=== PATIENT | male | born 1970 | race Caucasian/White ===

== ENCOUNTER 2019-06-19 19:15 | Emergency (ER) | payer BC ==
[2019-06-19] MEDS ORDERED: ONDANSETRON HCL IV 4 MG/2 ML VIAL IV ONE (19:33)
[2019-06-19] MEDS ORDERED: 0.9 % SODIUM CHLORIDE 1,000 ML BAG IV ONE ×2 (19:33→20:25)
[2019-06-19] MEDS ORDERED: ACETAMINOPHEN 1,000 MG/100 ML BTL IVPB ONE (19:34)
--- NOTE | 2019-06-19 19:35 | Emergency Department Record ---
History of Present Illness - General Chief complaint: Nausea, Vomiting, Diarrhea Stated complaint: NAKIA/DUNBAR/WEAK/HANDS TINGLING Time Seen by Provider: 06/19/19 19:28 Source: Patient Mode of Arrival: Ambulatory Limitations: No limitations - History of Present Illness Initial comments: The patient is here due to a 4 day hx of worsening watery diarrhea with nausea. He has been unable to keep anything down and has had crampy lower AP. The patient feels very dehydrated and did drive himself here and became weak and dizzy and lightheaded in the waiting room. He has had a gradually worsening DUNBAR over that time also. The patient denies any fever, chills, dysuria, or neck pain. The patient denies any fever, blood in the stool or recent travel to [place] or [place]. MD complaint: Diarrhea, Nausea Onset/Timin -: Days(s) Description of Vomiting: Watery Associated Abdominal Pain: Yes Location: LLQ, RLQ Radiation: None Severity: Severe Severity scale (1-10): 8 Quality: Cramping Consistency: Intermittent Improves with: None Worsens with: None Associated Symptoms: Shortness of breath - Related Data Home Medications Medication Instructions Recorded Confirmed Last Taken Venlafaxine HCl [Effexor] 75 mg PO DAILY 06/19/19 06/19/19 06/17/19 Previous Rx's Medication Instructions Recorded Ondansetron [Zofran Odt] 4 mg SL .Q4-6H PRN #12 tab.rapdis 06/19/19 Allergies Allergy/AdvReac Type Severity Reaction Status Date / Time Penicillins Allergy HIVES Verified 06/19/19 19:27 Travel Screening - Travel/Exposure Within Last 30 Days Have you traveled within the last 30 days?: Yes Location Detail:: [place] - Travel/Exposure Within Last Year Have you traveled outside the [place] in the last year?: Yes Location Detail:: [place] - Additonal Travel Details Have you been exposed to anyone with a communicable illness?: No - Travel Symptoms Symptom Screening: None Review of Systems Constitutional: Denies: Chills, Fever Eyes: Denies: Eye discharge ENT: Denies: Congestion Respiratory: Denies: Cough, Dyspnea Cardiovascular: Denies: Arrhythmia Endocrine: Reports: Fatigue Gastrointestinal: Reports: Diarrhea, Nausea. Denies: Hematemesis, Vomiting Genitourinary: Denies: Dysuria Musculoskeletal: Denies: Arthralgia Neurological: Denies: Abnormal gait Past Medical History - SOCIAL HISTORY Smoking Status: Never smoker Alcohol Use: Rare Drug Use: None - RESPIRATORY Hx Respiratory Disorders: No - CARDIOVASCULAR Hx Cardio Disorders: No - NEURO Hx Neuro Disorders: No - GI Hx GI Disorders: No - Hx Genitourinary Disorders: No - ENDOCRINE Hx Endocrine Disorders: No - MUSCULOSKELETAL Hx Musculoskeletal Disorders: No - PSYCH Hx Psych Problems: No Family Medical History Any Significant Family History?: No Physical Exam - General General Appearance: Alert, Oriented x3, Cooperative, No acute distress - Head Head exam: Atraumatic, Normocephalic - Eye Eye exam: Normal appearance, PERRL - ENT Throat exam: Normal inspection. negative: Tonsillar erythema, Tonsillar exudate - Neck Neck exam: Normal inspection, Full ROM. negative: Tenderness - Respiratory Respiratory exam: Normal lung sounds bilaterally. negative: Respiratory distress - Cardiovascular Cardiovascular Exam: Regular rate, Normal rhythm, Normal heart sounds - GI/Abdominal GI/Abdominal exam: Soft, Normal bowel sounds. negative: Rebound, Rigid, Tenderness - Extremities Extremities exam: Normal inspection, Full ROM, Normal capillary refill. negative: Tenderness - Neurological Neurological exam: Alert, Normal gait. negative: Abnormal gait, Motor sensory deficit - Skin Skin exam: negative: Rash Course Vital Signs 06/19/19 19:20 Temperature 98.1 F Pulse Rate 101 H Respiratory 24 Rate Blood Pressure 134/90 Pulse Ox 98 - Reevaluation(s) Reevaluation #1: The patient is doing a lot better at this time. He feels much better and denies any nausea or abdominal pain. He states his DUNBAR is almost completely gone and he denies any SOB, NAKIA, or any visual changes. 06/19/19 20:28 Reevaluation #2: The patient is doing very well at this time. He denies any DUNBAR, AP, nausea, or neck pain. He is up walking with no problems, pain or dyspnea. I did discuss the normal lab tests and the need for Zofran for home. He is to see his PCP next week and to return to the ER for any worsening issues. 06/19/19 21:00 Medical Decision Making - Data Complexity MDM Data: Labs Ordered and/or Reviewed, EKG Ordered and/or Reviewed - Lab Data Result diagrams: 06/19/19 19:20 06/19/19 19:20 - EKG Data -: EKG Interpreted by Me EKG: No Acute Changes (RBBB.) Disposition Disposition: Discharge Clinical Impression: Diarrhea Qualifiers: Diarrhea type: unspecified type Qualified Code(s): R19.7 - Diarrhea, unspecified Disposition: Home, Self-Care Condition: (2) Stable Instructions: Acute Diarrhea (ED) Additional Instructions: Please use the Zofran for nausea and drink plenty of fluids. Please see your family doctor for recheck in 2-3 days and return to the ER for any worsening symptoms. Prescriptions: Ondansetron [Zofran Odt] 4 mg SL .Q4-6H PRN #12 tab.rapdis PRN Reason: Nausea Forms: Patient Portal Access Time of Disposition: 21:03 Quality - Quality Measures Quality Measures: N/A - Blood Pressure Screening View Details: Yes Does Patient Have Any of the Following: No Blood Pressure Classification: Hypertensive Reading Systolic Measurement: 134 Diastolic Measurement: 90 Screening for High Blood Pressure: < First Hypertensive BP, F/U Documented > [[id number]] First Hypertensive Follow-up Interventions: Referral to alternative/primary care provider.
[2019-06-19 19:58] LABS: BLOOD UREA NITROGEN 12 mg/dL (6-20); CREATININE 0.7 mg/dL (0.7-1.2); EST GLOMERULAR FILTRATION RATE > 60 mL/min
[2019-06-19 19:59] LABS: LIPASE 15 U/L (13-60); TOTAL PROTEIN 7.4 g/dL (6.6-8.7)
[2019-06-19 20:01] LABS: GLUCOSE,RANDOM 118 mg/dL (74-109)
[2019-06-19 20:03] LABS: ALBUMIN 4.3 g/dL (4.0-5.0); ALT/SGPT 46 U/L (<41); AST/SGOT 40 U/L (10.0-50.0)
[2019-06-19 20:04] LABS: ALKALINE PHOSPHATASE 80 U/L (40-129)
[2019-06-19 20:05] LABS: BILIRUBIN,DIRECT < 0.2 mg/dL (0-0.3)
[2019-06-19 20:15] LABS: ABSOLUTE NEUTROPHIL COUNT 2.28; BASO % 0.5 % (0-6); GRAN % 56.8 % (47-80); HEMATOCRIT 46.3 % (42.0-52.0); HEMOGLOBIN 15.8 gm/dl (14.0-18.0); LYMPH % 31.2 % (16-45); MEAN CELL VOLUME 86.1 fl (81-97); MEAN CORPUSCULAR HEMOGLOBIN 29.4 pg (27-33); MEAN CORPUSCULAR HGB CONC 34.1 g/dl (32-36); MEAN PLATELET VOLUME 9.5 fl (7.4-10.4); MONO % 11.5 % (0-9); PLATELET COUNT 240 K/uL (130-400); RED BLOOD COUNT 5.38 M/uL (4.40-5.70); RED CELL DISTRIBUTION WIDTH 13.1 % (11.5-14.5)
[2019-06-19] MEDS ORDERED: KETOROLAC 30 MG/ML VIAL IVP ONE (20:27)
[2019-06-19 20:32] LABS: URINE APPEARANCE CLEAR; URINE BILIRUBIN NEGATIVE (NEGATIVE); URINE BLOOD NEGATIVE (NEGATIVE); URINE COLOR YELLOW; URINE GLUCOSE (UA) NEGATIVE (NEGATIVE); URINE KETONE NEGATIVE (NEGATIVE); URINE LEUKOCYTE ESTERASE NEGATIVE (NEGATIVE); URINE NITRITE NEGATIVE (NEGATIVE); URINE PROTEIN NEGATIVE (NEGATIVE); URINE UROBILINOGEN 0.2 E.U./dL (0.20 - 1.00)
== END 2019-06-19 21:18 | disposition home or self-care (01) ==
LOC: ER 19:15
DX: R19.7 Diarrhea, unspecified (principal); R11.2 Nausea with vomiting, unspecified; R51 Headache; R06.02 Shortness of breath; R42 Dizziness and giddiness; R53.1 Weakness; R10.84 Generalized abdominal pain
CPT/HCPCS: 80048; 80076; 81003; 83690; 84484; 85025; 86140; 93005; 93010; 96361; 96365; 96375; 99284; J1885; J2405; J7030